=== PATIENT | female | born 1955 | race Two or more races ===

== ENCOUNTER 2021-01-12 19:43 | Emergency (ER) | payer OTHER ==
[~2021-01-12] VITALS: Ht 160 cm; Wt 68.9 kg
[2021-01-12] MEDS ORDERED: LOTREL 5-10 MG1 CAP (20:19)
[2021-01-12] MEDS ORDERED: TENORMIN50 M1 (20:19)
[2021-01-12] MEDS ORDERED: LIPITOR40 M1 (20:20)
[2021-01-12] MEDS ORDERED: TESSALON PERLE100 M1 PO (23:10)
[2021-01-12] MEDS ORDERED: ZYRTEC10 M3 PO (23:10)
[2021-01-12] MEDS ORDERED: FLONASE16 GM NASAL (23:10)
== END 2021-01-12 23:08 | disposition home or self-care (01) ==
LOC: ER 19:43
DX: B34.9 Viral infection, unspecified (principal); Z03.818 Encounter for observation for suspected exposure to other biological agents ruled out; R05.9 Cough, unspecified

== ENCOUNTER 2021-04-22 10:08 | Emergency (ER) | payer OTHER ==
[~2021-04-22] VITALS: Ht 162.6 cm; Wt 71.7 kg
[~2021-04-22 10:08] MED LIST: FLONASE16 GM NASAL; LIPITOR40 M1; LOTREL 5-10 MG1 CAP; TENORMIN50 M1; TESSALON PERLE100 M1 PO; ZYRTEC10 M3 PO
== END 2021-04-22 12:22 | disposition home or self-care (01) ==
LOC: ER 10:08
DX: K52.9 Noninfective gastroenteritis and colitis, unspecified (principal)

== ENCOUNTER 2021-04-23 18:49 | Emergency (ER) | payer OTHER ==
[~2021-04-23] VITALS: Ht 160 cm; Wt 71.7 kg
== END 2021-04-23 23:42 | disposition home or self-care (01) ==
LOC: ER 18:49
DX: B34.9 Viral infection, unspecified (principal); R19.7 Diarrhea, unspecified; Z20.822 Contact with and (suspected) exposure to COVID-19

== ENCOUNTER 2022-10-02 17:47 | Emergency (ER) | payer OTHER ==
[~2022-10-02] VITALS: Ht 160 cm; Wt 72.6 kg
[2022-10-02] MEDS ORDERED: BUDESONIDE0.5 MG/2 M IH (19:47)
[2022-10-02] MEDS ORDERED: ALBUTEROL2.5 MG/3 M IH (19:47)
== END 2022-10-02 19:54 | disposition home or self-care (01) ==
LOC: ER 17:47
PROVIDERS: Emergency Medicine
DX: B34.9 Viral infection, unspecified (principal); Z20.822 Contact with and (suspected) exposure to COVID-19